=== PATIENT | female | born 2000 | race Caucasian/White ===

== ENCOUNTER 2020-09-03 21:40 | Emergency (ER) | payer SELFPAY ==
[~2020-09-03] VITALS: Ht 160 cm; Wt 45.4 kg
[2020-09-03 21:40] VITALS: BP 129/67
[~2020-09-03 21:40] MED LIST: PREN-234
--- NOTE | 2020-09-03 21:40 | NUR ---
PT BIBA TO BED 03.
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
--- NOTE | 2020-09-03 22:10 | NUR ---
DR. WOLF AT BEDSIDE EVALUATING PT.
--- NOTE | 2020-09-03 22:33 | NUR ---
Sonido resendiz in ED - 09/03/20 at 2234 by [facility] PT GIVING URINE AT THIS TIME.
--- NOTE | 2020-09-03 22:34 | NUR ---
LAB AT BEDSIDE.
--- NOTE | 2020-09-03 22:35 | NUR ---
PT AMBULATED TO RESTROOM WITH STEADY GAIT.
[2020-09-03 22:45] LABS: BASOPHILS # (AUTO) 0.1 K/uL (0.00-0.22); BASOPHILS % (AUTO) 0.9 % (0.0-2.0); EOSINOPHILS # (AUTO) 0.1 K/uL (0-0.4); EOSINOPHILS % (AUTO) 0.8 % (0.0-4.0); HEMATOCRIT 34.5 % (36-48); HEMOGLOBIN 11.7 g/dL (12.0-16.0); LYMPHOCYTES # (AUTO) 1.2 K/uL (2.5-16.5); LYMPHOCYTES % (AUTO) 17.2 % (20.5-51.1); MEAN CORPUSCULAR HEMOGLOBIN 32 pg (27-31); MEAN CORPUSCULAR HGB CONC 34 g/dL (33-37); MEAN CORPUSCULAR VOLUME 93.7 fL (80-94); MONOCYTES # (AUTO) 0.6 K/uL (0.8-1.0); MONOCYTES % (AUTO) 8.7 % (1.7-9.3); NEUTROPHILS # (AUTO) 5.2 K/uL (1.8-7.7); NEUTROPHILS % (AUTO) 72.4 % (42.2-75.2); PLATELET COUNT (AUTO) 170 K/uL (140-450); RED BLOOD CELL COUNT(AUTO) 3.68 MIL/uL (4.20-5.40); RED CELL DISTRIBUTION WIDTH 13.4 % (11.6-13.7); WHITE BLOOD COUNT (AUTO) 7.2 K/uL (4.8-10.8)
--- NOTE | 2020-09-03 22:48 | NUR ---
ULTRASOUND AT BEDSIDE.
[2020-09-03 22:51] LABS: APPEARANCE,URINE CLOUDY (CLEAR); BILIRUBIN,URINE NEGATIVE (NEGATIVE); BLOOD, URINE TRACE-I (NEGATIVE); COLOR,URINE YELLOW (YELLOW); LEUKOCYTE ESTERASE ,URINE 2+ (NEGATIVE); NITRITE, URINE NEGATIVE (NEGATIVE); PH,URINE 6.5 (5.0-9.0); UGLUCOSE NEGATIVE (NEGATIVE)
[2020-09-03 22:59] LABS: ANION GAP 15.4 (8-16); CARBON DIOXIDE 22.2 mmol/L (21-32); CREATININE 0.6 mg/dL (0.6-1.3); POTASSIUM 3.6 mmol/L (3.5-5.1)
[2020-09-03 23:04] LABS: ALBUMIN 3.4 g/dL (3.4-5.0); TOTAL BILIRUBIN 0.2 mg/dL (0.0-1.0)
[2020-09-03 23:05] LABS: RBC,URINE 0-5 /HPF (0-5)
[2020-09-04 00:58] LABS: D-DIMER < 100 ng/ml (0-400)
[2020-09-04 01:02] LABS: FIBRINOGEN 359 mg/dL (200-400); PROTHROMBIN TIME 9.6 secs (10.8-13.4)
[2020-09-04 02:43] VITALS: BP 128/74
--- NOTE | 2020-09-04 02:44 | NUR ---
Patient discharged with v/s stable. Written and verbal after care instructions given and explained. Patient alert, oriented and verbalized understanding of instructions. Ambulatory with steady gait. All questions addressed prior to discharge. ID band removed. Patient advised to follow up with PMD. Rx of NITROFURANTOIN given. Patient educated on indication of medication including possible reaction and side effects. Opportunity to ask questions provided and answered.
[2020-09-04] MEDS ORDERED: NITROFURANTOIN 100 MG CAP PO SCH (08:00)
== END 2020-09-04 02:42 | disposition home or self-care (01) ==
LOC: MED 21:40
DX: O23.42 Unspecified infection of urinary tract in pregnancy, second trimester (principal); Z79.899 Other long term (current) drug therapy; Z3A.16 16 weeks gestation of pregnancy; V89.2XXA Person injured in unspecified motor-vehicle accident, traffic, initial encounter; Y93.89 Activity, other specified; Y92.89 Other specified places as the place of occurrence of the external cause; Y99.8 Other external cause status
CPT/HCPCS: 36415; 76805; 80053; 81001; 81025; 84702; 85025; 85379; 85384; 85610; 86900; 86901; 87086; 99284; Q0092